=== PATIENT | female | born 1990 | race Caucasian/White ===

== ENCOUNTER 2017-01-30 12:09 | Emergency (ER) | payer OTHER ==
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
--- NOTE | 2017-01-30 13:11 | ED ORDER SUMMARY ---
..... Patient: ASHLEE BERGERON OrderSheet [facility] VisitID: [id number] [place] [address] 26y, F Registration Date/Time: 01/30/2017 ORDER SHEET Weight: 105.2 kg (stated) Allergies: Percocet GENERAL ORDERS: Tibia/Fibula Right Urgent (12:41 01/30/2017 Afshan Huynh) (Ack 12:43 PWeiler ER Tech1) (12:56 PWeiler ER Tech1) Dress Wounds (gauze) (baci) (12:41 01/30/2017 Afshan Huynh) (13:18 PWeiyanique ER Tech1) Irrigate Wounds (12:42 01/30/2017 Afshan Huynh) (13:18 PWeiler ER Tech1) MEDICATION ORDERS: Morphine IM 5 mg (HIGH ALERT MEDICATION, NOW) (12:41 01/30/2017 Afshan Huynh) (Ack 13:07 Jillian R.NMika) (13:07 Kiko RMikaNMika) IV FLUIDS: ORDER SHEET NOTES: [Electronically signed by Fredi Barrientos R.N. (13:28 01/30/2017)] [Electronically signed by Justen Wyman Dr. (07:41 02/01/2017)] [Electronically locked/signed by Fredi Barrientos R.N. (13:28 01/30/2017)]
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
--- NOTE | 2017-01-30 13:11 | ED ORDER SUMMARY ---
..... Patient: ASHLEE BERGERON OrderSheet [facility] VisitID: [id number] [place] [address] 26y, F Registration Date/Time: 01/30/2017 ORDER SHEET Weight: 105.2 kg (stated) Allergies: Percocet GENERAL ORDERS: Tibia/Fibula Right Urgent (12:41 01/30/2017 Afshan Huynh) (Ack 12:43 PWeiler ER Tech1) (12:56 PWeiler ER Tech1) Dress Wounds (gauze) (baci) (12:41 01/30/2017 Afshan Huynh) (13:18 PWeiyanique ER Tech1) Irrigate Wounds (12:42 01/30/2017 Afshan Huynh) (13:18 PWeiler ER Tech1) MEDICATION ORDERS: Morphine IM 5 mg (HIGH ALERT MEDICATION, NOW) (12:41 01/30/2017 Afshan Huynh) (Ack 13:07 Jillian R.NMika) (13:07 Kiko RMikaNMika) IV FLUIDS: ORDER SHEET NOTES: [Electronically signed by Fredi Barrientos R.N. (13:28 01/30/2017)] [Electronically signed by Justen Wyman Dr. (07:41 02/01/2017)] [Electronically locked/signed by Fredi Barrientos R.N. (13:28 01/30/2017)]
--- NOTE | 2017-01-30 13:11 | ED CLINICAL REPORT ---
Clinical Report - Physicians/Mid Levels [facility] [address] [place] [address] 01/30/2017 12:15 Patient: ASHLEE BERGERON Time Seen: 1209; initial patient contact. Arrived- By private vehicle. Historian- patient. HISTORY OF PRESENT ILLNESS Chief Complaint: Injury to right leg. The injury happened just prior to arrival today. Occurred at home. Fell (onto childrens stool). Patient is experiencing moderate pain. Patient denies injury to the head or neck. No other injury. REVIEW OF SYSTEMS The patient sustained a laceration. She has had swelling. No tingling, weakness, numbness or suspected foreign body. All systems otherwise negative, except as recorded above. PAST HISTORY See nurses notes. Tetanus immunization status is up-to-date. Medications: None. Allergies: Percocet. (agitation). SOCIAL HISTORY Never smoker. No alcohol use or drug use. Is a local resident. ADDITIONAL NOTES The nursing notes have been reviewed. PHYSICAL EXAM Vital Signs: 01/30/2017 12:25 BP: 138/84. HR: 73. RR: 16. O2 saturation: 100%. Temp: 97.8 F. Blood pressure normal. Oxygen saturation normal. Appearance: Alert. Oriented X3. No acute distress. Head: Head atraumatic. Neck: Normal inspection. Neck supple. C-spine non-tender. CVS: Normal heart rate and rhythm. Heart sounds normal. Pulses normal. Respiratory: No respiratory distress. Breath sounds normal. Chest nontender. No rales, rhonchi or wheezes. Abdomen: No visible injury. Soft and nontender. Bowel sounds normal. Back: Normal inspection. No tenderness. ROM normal. Skin: Skin intact. Skin warm and dry. Normal skin color. Normal skin turgor. Extremities: (anterior right middle abrassion and contusion with developing ecchymosis. compartment soft. neurovasc intact. good AROM above and below injury. the rest of the patient's exam in atraumatic.). No tenderness in other areas. Extremities otherwise negative. Neuro, Vascular and Tendons: Vascular status intact. Sensation intact. Motor intact. Tendon function intact. PROGRESS AND PROCEDURES Course of Care: patient presented for evaluation of injury to the right anterior benitez. Differential diagnoses at this time includes fracture versus dislocation. No neurovascular compromise at this time. Patient will be provided pain medication. She was agreeable to the treatment plan. Radiographs show no signs of acute osseous abnormality. Patient continues to be neurovascularly intact. Patient is improved on repeat examination. Discussed the patient workup. Emergency department including diagnosis, home care, follow-up, and return precautions. All questions have been answered. The patient expressed understanding of these instructions and was agreeable to them. Disposition: Discharged. Condition: good. CLINICAL IMPRESSION 01/30/2017 12:25 BP: 138/84. HR: 73. RR: 16. O2 saturation: 100%. Temp: 97.8 F. Blood pressure normal. Oxygen saturation normal. Single superficial abrasion to the left lower leg. Single contusion with soft tissue hematoma to the right lower leg. INSTRUCTIONS Warnings: GENERAL WARNINGS: Return or contact your physician immediately if your condition worsens or changes unexpectedly, if not improving as expected, or if other problems arise. Specifically return if pain, vomiting, bleeding, breathing difficulty or fever. Your Current Medications: CONTINUE TAKING THE FOLLOWING MEDICATIONS: None*. Prescription Medications: [place] take 1 orally as needed for pain. Dispense five (5). Substitution is permissible. (at night) Follow-up: Return to the emergency department as needed. Follow up with your doctor in three days. Reason for referral: recheck today's concerns. Summary of care provided to patient via paper. Screening today revealed the patient's blood pressure to be in the normal range. The patient should follow up with a primary care provider for blood pressure management. Understanding of the discharge instructions verbalized by patient. (Electronically signed by Justen Wyman Dr. 02/01/2017 7:41) Addenda for ASHLEE BERGERON VisitID: [id number] Date: 01/30/2017 01/30/2017 13:48 Patient's wound irrigated with sterile saline. Wounds dressed with gauze and bacitracin. Patient fitted with crutches (Electronically signed by Krystian Garvin - 01/30/2017 13:48) 01/30/2017 14:03 Clarified with , ordered 5mg/325mg [place], qhs PRN (Electronically signed by Fredi Barrientos R.N. - 01/30/2017 14:03)
--- NOTE | 2017-01-30 13:11 | ED CLINICAL REPORT ---
Clinical Report - Physicians/Mid Levels [facility] [address] [place] [address] 01/30/2017 12:15 Patient: ASHLEE BERGERON Time Seen: 1209; initial patient contact. Arrived- By private vehicle. Historian- patient. HISTORY OF PRESENT ILLNESS Chief Complaint: Injury to right leg. The injury happened just prior to arrival today. Occurred at home. Fell (onto childrens stool). Patient is experiencing moderate pain. Patient denies injury to the head or neck. No other injury. REVIEW OF SYSTEMS The patient sustained a laceration. She has had swelling. No tingling, weakness, numbness or suspected foreign body. All systems otherwise negative, except as recorded above. PAST HISTORY See nurses notes. Tetanus immunization status is up-to-date. Medications: None. Allergies: Percocet. (agitation). SOCIAL HISTORY Never smoker. No alcohol use or drug use. Is a local resident. ADDITIONAL NOTES The nursing notes have been reviewed. PHYSICAL EXAM Vital Signs: 01/30/2017 12:25 BP: 138/84. HR: 73. RR: 16. O2 saturation: 100%. Temp: 97.8 F. Blood pressure normal. Oxygen saturation normal. Appearance: Alert. Oriented X3. No acute distress. Head: Head atraumatic. Neck: Normal inspection. Neck supple. C-spine non-tender. CVS: Normal heart rate and rhythm. Heart sounds normal. Pulses normal. Respiratory: No respiratory distress. Breath sounds normal. Chest nontender. No rales, rhonchi or wheezes. Abdomen: No visible injury. Soft and nontender. Bowel sounds normal. Back: Normal inspection. No tenderness. ROM normal. Skin: Skin intact. Skin warm and dry. Normal skin color. Normal skin turgor. Extremities: (anterior right middle abrassion and contusion with developing ecchymosis. compartment soft. neurovasc intact. good AROM above and below injury. the rest of the patient's exam in atraumatic.). No tenderness in other areas. Extremities otherwise negative. Neuro, Vascular and Tendons: Vascular status intact. Sensation intact. Motor intact. Tendon function intact. PROGRESS AND PROCEDURES Course of Care: patient presented for evaluation of injury to the right anterior benitez. Differential diagnoses at this time includes fracture versus dislocation. No neurovascular compromise at this time. Patient will be provided pain medication. She was agreeable to the treatment plan. Radiographs show no signs of acute osseous abnormality. Patient continues to be neurovascularly intact. Patient is improved on repeat examination. Discussed the patient workup. Emergency department including diagnosis, home care, follow-up, and return precautions. All questions have been answered. The patient expressed understanding of these instructions and was agreeable to them. Disposition: Discharged. Condition: good. CLINICAL IMPRESSION 01/30/2017 12:25 BP: 138/84. HR: 73. RR: 16. O2 saturation: 100%. Temp: 97.8 F. Blood pressure normal. Oxygen saturation normal. Single superficial abrasion to the left lower leg. Single contusion with soft tissue hematoma to the right lower leg. INSTRUCTIONS Warnings: GENERAL WARNINGS: Return or contact your physician immediately if your condition worsens or changes unexpectedly, if not improving as expected, or if other problems arise. Specifically return if pain, vomiting, bleeding, breathing difficulty or fever. Your Current Medications: CONTINUE TAKING THE FOLLOWING MEDICATIONS: None*. Prescription Medications: [place] take 1 orally as needed for pain. Dispense five (5). Substitution is permissible. (at night) Follow-up: Return to the emergency department as needed. Follow up with your doctor in three days. Reason for referral: recheck today's concerns. Summary of care provided to patient via paper. Screening today revealed the patient's blood pressure to be in the normal range. The patient should follow up with a primary care provider for blood pressure management. Understanding of the discharge instructions verbalized by patient. (Electronically signed by Justen Wyman Dr. 02/01/2017 7:41) Addenda for ASHLEE BERGERON VisitID: [id number] Date: 01/30/2017 01/30/2017 13:48 Patient's wound irrigated with sterile saline. Wounds dressed with gauze and bacitracin. Patient fitted with crutches (Electronically signed by Krystian Garvin - 01/30/2017 13:48) 01/30/2017 14:03 Clarified with , ordered 5mg/325mg [place], qhs PRN (Electronically signed by Fredi Barrientos R.N. - 01/30/2017 14:03)
--- NOTE | 2017-01-30 13:39 | DIAGNOSTIC IMAGING REPORT ---
PROCEDURE: XR TIBIA AND FIBULA - RIGHT INDICATION: Trauma. TECHNIQUE: AP and lateral views. COMPARISON: None. FINDINGS: Mild soft tissue swelling anterior to the mid tibia but no evidence of a radiopaque foreign body or fracture. IMPRESSION: 1. Soft tissue swelling
--- NOTE | 2017-02-01 07:42 | ED MED RECONCILIATION SUMMARY ---
Patient: ASHLEE BERGERON Medication Reconciliation Report [facility] VisitID: [id number] [address] [place] [address] 26y, F Registration Date/Time: 01/30/2017 Weight: 105.2 kg Height/Length: 69 in. BMI: 34.3 ALLERGIES: Percocet The patient's Home Medications are listed below: NONE. The source(s) of the original Home Medication information: patient The following Medications were given to the patient in the Emergency Department: Morphine [IM] IM 5 mg, administered: 01/30/2017 1:02:00 PM The following Medications were prescribed to the patient: [employer] take 1 orally as needed for pain. Dispense five (5). Substitution is permissible.(at night) -- Justen Wyman Dr.
--- NOTE | 2017-02-01 07:42 | ED DISCHARGE INSTRUCTIONS ---
Patient: ASHLEE BERGERON General Instructions [facility] VisitID: [id number] [place] [address] 26y, F Registration Date/Time: 01/30/2017 01/30/2017 12:25 BP: 138/84. HR: 73. RR: 16. O2 saturation: 100%. Temp: 97.8 F. Blood pressure normal. Oxygen saturation normal. Single superficial abrasion to the left lower leg. Single contusion with soft tissue hematoma to the right lower leg. INSTRUCTIONS Warnings: GENERAL WARNINGS: Return or contact your physician immediately if your condition worsens or changes unexpectedly, if not improving as expected, or if other problems arise. Specifically return if pain, vomiting, bleeding, breathing difficulty or fever. Your Current Medications: CONTINUE TAKING THE FOLLOWING MEDICATIONS: None*. Prescription Medications: Wingate take 1 orally as needed for pain. Dispense five (5). Substitution is permissible. (at night) Follow-up: Return to the emergency department as needed. Follow up with your doctor in three days. Reason for referral: recheck today's concerns. Summary of care provided to patient via paper. Screening today revealed the patient's blood pressure to be in the normal range. The patient should follow up with a primary care provider for blood pressure management. Understanding of the discharge instructions verbalized by patient. ADDITIONAL INFORMATION Abrasions Abrasions are skin scrapes. Their treatment depends on how large and deep the abrasion is. Home Care: If you were given a bandage, change it once a day. If your bandage sticks to the wound, soak it in warm water until it loosens. Wash the area with soap and water to remove all the cream/ointment. You may do this in a sink, under a tub faucet or shower. Rinse off the soap and pat dry with a clean towel. Reapply cream/ointment according to your doctor's instructions. This will prevent infection and help prevent the bandage from sticking. Cover the wound with a fresh non-stick bandage (Telfa). Repeat steps 1 to 4 daily, or as directed by your doctor. If the bandage becomes wet or dirty, change it as soon as possible. You may use acetaminophen (Tylenol) or ibuprofen (Motrin, Advil) to control pain, unless another pain medicine was prescribed. [ NOTE : If you have chronic liver or kidney disease or ever had a stomach ulcer or GI bleeding, talk with your doctor before using these medicines.] Do not use ibuprofen in children under six months of age. Follow Up with your physician or this facility as directed by our staff. Most skin wounds heal within ten days. However, an infection may occur despite proper treatment. Therefore, look for the early signs of infection listed below. Get Prompt Medical Attention if any of the following occur: Increasing pain in the wound Increasing redness or swelling Pus coming from the wound Fever of 100.4F (38C) or higher, or as directed by your healthcare provider Contusion:Lower Extremity You have a CONTUSION of your LOWER extremity (leg, knee, ankle, foot, or toes). This causes local pain, swelling and sometimes bruising. There are no broken bones. This injury may take from a few days to a few weeks to heal. Home Care: 1) Keep your leg elevated to reduce pain and swelling. When sleeping, place a pillow under the injured leg. When sitting, support the injured leg so it is level with your waist. This is very important during the first 48 hours. 2) If CRUTCHES have been advised, do not bear full weight on the injured leg until you can do so without pain. You may return to sports when you are able to hop and run on the injured leg without pain. 3) Apply an ice pack (ice cubes in a plastic bag, wrapped in a towel) over the injured area for 20 minutes every 1-2 hours the first day for pain relief. Continue this 3-4 times a day until the pain and swelling goes away. 4) You may use acetaminophen (Tylenol) or ibuprofen (Motrin, Advil) to control pain, unless another pain medicine was prescribed. [ NOTE : If you have chronic liver or kidney disease or ever had a stomach ulcer or GI bleeding, talk with your doctor before using these medicines.] Follow Up with your doctor or this facility if you are not starting to improve within the next THREE days. [NOTE: If X-rays were taken, they will be reviewed by a radiologist. You will be notified of any new findings that may affect your care.] Get Prompt Medical Attention if any of the following occur: -- Pain or swelling increases -- Toes become cold, blue, numb or tingly -- Redness, warmth or drainage from the skin Hydrocodone Bitartrate, Acetaminophen Oral tablet What is this medicine? ACETAMINOPHEN; HYDROCODONE (a set a RITIKA ervin fen; erica droe KOE done) is a pain reliever. It is used to treat mild to moderate pain. How should I use this medicine? Take this medicine by mouth. Swallow it with a full glass of water. Follow the directions on the prescription label. If the medicine upsets your stomach, take the medicine with food or milk. Do not take more than you are told to take. Talk to your aws software development engineer regarding the use of this medicine in children. This medicine is not approved for use in children. What side effects may I notice from receiving this medicine? Side effects that you should report to your doctor or health home care administrator as soon as possible: allergic reactions like skin rash, itching or hives, swelling of the face, lips, or tongue breathing problems confusion feeling faint or lightheaded, falls stomach pain yellowing of the eyes or skin Side effects that usually do not require medical attention (report to your doctor or health home care administrator if they continue or are bothersome): nausea, vomiting stomach upset What may interact with this medicine? alcohol antihistamines isoniazid medicines for depression, anxiety, or psychotic disturbances medicines for sleep muscle relaxants naltrexone narcotic medicines (opiates) for pain phenobarbital ritonavir tramadol What if I miss a dose? If you miss a dose, take it as soon as you can. If it is almost time for your next dose, take only that dose. Do not take double or extra doses. Where should I keep my medicine? Keep out of the reach of children. This medicine can be abused. Keep your medicine in a safe place to protect it from theft. Do not share this medicine with anyone. Selling or giving away this medicine is dangerous and against the law. Store at room temperature between 15 and 30 degrees C (59 and 86 degrees F). Protect from light. Keep container tightly closed. Throw away any unused medicine after the expiration date. Discard unused medicine and used packaging carefully. Pets and children can be harmed if they find used or lost packages. What should I tell my health care provider before I take this medicine? They need to know if you have any of these conditions: brain tumor Crohn's disease, inflammatory bowel disease, or ulcerative colitis drink more than 3 alcohol-containing drinks per day drug abuse or addiction head injury heart or circulation problems kidney disease or problems going to the bathroom liver disease lung disease, asthma, or breathing problems an unusual or allergic reaction to acetaminophen, hydrocodone, other opioid analgesics, other medicines, foods, dyes, or preservatives or trying to get breast-feeding What should I watch for while using this medicine? Tell your doctor or health home care administrator if your pain does not go away, if it gets worse, or if you have new or a different type of pain. You may develop tolerance to the medicine. Tolerance means that you will need a higher dose of the medicine for pain relief. Tolerance is normal and is expected if you take the medicine for a long time. Do not suddenly stop taking your medicine because you may develop a severe reaction. Your body becomes used to the medicine. This does NOT mean you are addicted. Addiction is a behavior related to getting and using a drug for a non-medical reason. If you have pain, you have a medical reason to take pain medicine. Your doctor will tell you how much medicine to take. If your doctor wants you to stop the medicine, the dose will be slowly lowered over time to avoid any side effects. You may get drowsy or dizzy when you first start taking the medicine or change doses. Do not drive, use machinery, or do anything that may be dangerous until you know how the medicine affects you. Stand or sit up slowly. There are different types of narcotic medicines (opiates) for pain. If you take more than one type at the same time, you may have more side effects. Give your health care provider a list of all medicines you use. Your doctor will tell you how much medicine to take. Do not take more medicine than directed. Call emergency for help if you have problems breathing. The medicine will cause constipation. Try to have a bowel movement at least every 2 to 3 days. If you do not have a bowel movement for 3 days, call your doctor or health home care administrator. Too much acetaminophen can be very dangerous. Do not take Tylenol (acetaminophen) or medicines that contain acetaminophen with this medicine. Many non-prescription medicines contain acetaminophen. Always read the labels carefully. You have been given the following additional information: Abrasion Contusion, Lower Extremity Hydrocodone Bitartrate, Acetaminophen Oral tablet (Electronically signed by Justen Wyman Dr. 02/01/2017 7:41)
--- NOTE | 2017-02-01 07:42 | ED MAR SUMMARY ---
..... Medication Administration Record [facility] [address] [place] [address] Patient: ASHLEE BERGERON Visit ID: [id number] 26y, F Weight: 105.2 kg Height/Length: 69 in BMI: 34.3 ALLERGIES: Percocet Given 13:02 01/30/2017 Henry Montemayor R.N. Medication Administered: MORPHINE [IM] (MORPHINE SULFATE (PF)), Dose: 5 mg IM. Medication Ordered: Morphine IM 5 mg (HIGH ALERT MEDICATION, NOW).
--- NOTE | 2017-02-01 07:42 | ED MED RECONCILIATION SUMMARY ---
Patient: ASHLEE BERGERON Medication Reconciliation Report [facility] VisitID: [id number] [address] [place] [address] 26y, F Registration Date/Time: 01/30/2017 Weight: 105.2 kg Height/Length: 69 in. BMI: 34.3 ALLERGIES: Percocet The patient's Home Medications are listed below: NONE. The source(s) of the original Home Medication information: patient The following Medications were given to the patient in the Emergency Department: Morphine [IM] IM 5 mg, administered: 01/30/2017 1:02:00 PM The following Medications were prescribed to the patient: Simpson take 1 orally as needed for pain. Dispense five (5). Substitution is permissible.(at night) -- Justen Wyman Dr.
--- NOTE | 2017-02-01 07:42 | ED MAR SUMMARY ---
..... Medication Administration Record Merged With [facility] [address] [place] [address] Patient: ASHLEE BERGERON Visit ID: [id number] 26y, F Weight: 105.2 kg Height/Length: 69 in BMI: 34.3 ALLERGIES: Percocet Given 13:02 01/30/2017 Henry Montemayor R.N. Medication Administered: MORPHINE [IM] (MORPHINE SULFATE (PF)), Dose: 5 mg IM. Medication Ordered: Morphine IM 5 mg (HIGH ALERT MEDICATION, NOW).
== END 2017-01-30 13:26 | disposition home or self-care (01) ==
LOC: ED SRH 12:09
DX: S80.11XA Contusion of right lower leg, initial encounter (principal); S80.812A Abrasion, left lower leg, initial encounter; W22.09XA Striking against other stationary object, initial encounter; Y93.9 Activity, unspecified; Y99.9 Unspecified external cause status; Y92.9 Unspecified place or not applicable